=== PATIENT | male | born 1975 | race African-American/Black ===

== ENCOUNTER 2024-10-19 09:51 | Emergency (ER) | payer MEDICAID ==
[~2024-10-19] VITALS: Ht 162.6 cm; Wt 75.0 kg
[2024-10-19 09:58] VITALS: TEMP 98.1
[2024-10-19] MEDS ORDERED: CEPH-558 PO (13:42)
[2024-10-19] MEDS ORDERED: SULF-261 PO (13:42)
[2024-10-19 14:18] VITALS: BP 139/74; PULSE 87; RESP 16; O2SAT 98
== END 2024-10-19 14:21 | disposition home or self-care (01) ==
LOC: EMS 09:54
DX: L03.011 Cellulitis of right finger (principal)
CPT/HCPCS: 10160; 99283; 99284